=== PATIENT | male | born 1985 | race Caucasian/White ===

== ENCOUNTER 2017-06-15 13:38 | Emergency (ER) | payer SELFPAY ==
[~2017-06-15] VITALS: Ht 185.4 cm; Wt 110.0 kg
[2017-06-15 13:40] VITALS: BP 138/71; PULSE 77; RESP 15; TEMP 98.2; O2SAT 98
[2017-06-15 15:07] LABS: AUTOMATED NEUTROPHIL # 4.7 TH/MM3 (1.8-7.7); BASOPHIL % 0.6 % (0.0-2.0); EOSINOPHIL # 0.1 TH/MM3 (0-0.4); EOSINOPHIL % 1.3 % (0.0-4.0); HEMATOCRIT 46.5 % (39.0-51.0); HEMO FLAGS DIFF FINAL; LYMPH % 17.8 % (9.0-44.0); LYMPHOCYTE # 1.2 TH/MM3 (1.0-4.8); MEAN CELL VOLUME 99.6 FL (80.0-100.0); MEAN CORPUSCULAR HEMOGLOBIN 34.3 PG (27.0-34.0); MEAN CORPUSCULAR HGB CONC 34.4 % (32.0-36.0); MONO % 10.1 % (0.0-8.0); NEUT % 70.2 % (16.0-70.0); PLATELET COUNT 196 TH/MM3 (150-450); RED BLOOD COUNT 4.68 MIL/MM3 (4.50-5.90); RED CELL DISTRIBUTION WIDTH 12.6 % (11.6-17.2); WHITE BLOOD COUNT 6.7 TH/MM3 (4.0-11.0)
--- NOTE | 2017-06-15 15:33 | RADRPT ---
EXAM DATE/TIME: 06/15/2017 15:14 [place] COMPARISON: No previous studies available for comparison. INDICATIONS : Intermittent body aches and chest pain. MEDICAL HISTORY : None. SURGICAL HISTORY : None. ENCOUNTER: Initial ACUITY: 1 month PAIN SCORE: 8/10 LOCATION: Bilateral chest FINDINGS: PA and lateral views of the chest demonstrate a normal-sized cardiac silhouette. There is no effusion , consolidation, or pneumothorax. The bones and soft tissues demonstrate no acute abnormality. CONCLUSION: Normal chest x-ray. Zay Oliveros MD on June 15, 2017 at 15:31 Board Certified Radiologist. This report was verified electronically.
[2017-06-15 15:47] LABS: ANION GAP 5 MEQ/L (5-15); BICARBONATE 28.6 MEQ/L (21.0-32.0); BLOOD UREA NITROGEN 13 MG/DL (7-18); CHLORIDE 104 MEQ/L (98-107); GLOMERULAR FILTRATION RATE 91 ML/MIN (>89); SODIUM (NA) 138 MEQ/L (136-145)
[2017-06-15 15:48] VITALS: O2SAT 100
[2017-06-15 15:49] LABS: CREATINE KINASE 144 U/L (39-308)
[2017-06-15] MEDS ORDERED: ONDANSETRON HCL 4 MG/2 ML VIAL IV PUSH ONE (16:00)
[2017-06-15] MEDS ORDERED: SODIUM CHLOR 0.9% 1000 ML INJ 1,000 ML IV ONE (16:00)
[2017-06-15 16:04] LABS: CKMB 1.6 NG/ML (0.5-3.6)
--- NOTE | 2017-06-15 16:06 | PD ---
HPI Chief Complaint: Cardiac Complaint Time Seen by Provider: 16:00 Travel History International Travel<30 days: No Contact w/Intl Traveler<30days: No Traveled to known affect area: No History of Present Illness HPI 31-year-old male presents to the emergency department for evaluation of "I don' t feel good". Patient reports fatigue for several months, intermittent headaches for several months, intermittent left-sided chest pain, bilateral shoulder pain. Patient states that he ate a large Han this morning and his symptoms started shortly after. He states he is also nauseated. He denies any fevers or chills. No shortness of breath. No abdominal pain. He states he had diarrhea yesterday, one episode today. Patient denies any recent surgery or travel. No history of DVT or PE. He denies any cardiac history. He has no significant family history of cardiac disease. He has no chronic medical problems and takes no prescribed medications. Patient denies IVDU. PFSH Past Medical History Anxiety: Yes Past Surgical History Surgical History: No Previous Surgery Social History Alcohol Use: Yes Tobacco Use: No Substance Use: No Allergies-Medications (Allergen,Severity, Reaction): Coded Allergies: No Known Allergies (Unverified , 06/15/17) Review of Systems Except as stated in HPI: all other systems reviewed are Neg Physical Exam Narrative GENERAL: Well-nourished, well-developed male patient, afebrile. SKIN: Focused skin assessment warm/dry. HEAD: Normocephalic. Atraumatic. EYES: No scleral icterus. No injection or drainage. NECK: Supple, trachea midline. No JVD or lymphadenopathy. CARDIOVASCULAR: Regular rate and rhythm without murmurs, gallops, or rubs. Bilateral radial and pedal pulses are clear. RESPIRATORY: Breath sounds equal bilaterally. No accessory muscle use. Lungs sounds are clear to auscultation GASTROINTESTINAL: Abdomen soft, non-tender, nondistended. No abdominal pain to palpation. MUSCULOSKELETAL: No cyanosis, or edema. BACK: Nontender without obvious deformity. No CVA tenderness. Data Data Last Documented VS Vital Signs Date Time Temp Pulse Resp B/P Pulse Ox O2 Delivery O2 Flow Rate FiO2 06/15/17 15:48 100 06/15/17 15:48 Nasal Cannula 2 06/15/17 13:40 98.2 77 15 138/71 Orders Electrocardiogram (06/15/17 14:35) Complete Blood Count With Diff (06/15/17 14:35) Basic Metabolic Panel (Bmp) (06/15/17 14:35) Ckmb (Isoenzyme) Profile (06/15/17 14:35) Troponin I (06/15/17 14:35) Iv Access Insert/Monitor (06/15/17 14:35) Ecg Monitoring (06/15/17 14:35) Oxygen Administration (06/15/17 14:35) Oximetry (06/15/17 14:35) Chest, Pa & Lat (06/15/17 14:35) CKMB (06/15/17 14:45) CKMB% (06/15/17 14:45) Sodium Chlor 0.9% 1000 Ml Inj (Ns 1000 M (06/15/17 16:00) Ondansetron Inj (Zofran Inj) (06/15/17 16:00) Labs Laboratory Tests Test 06/15/17 14:45 White Blood Count 6.7 TH/MM3 Red Blood Count 4.68 MIL/MM3 Hemoglobin 16.0 GM/DL Hematocrit 46.5 % Mean Corpuscular Volume 99.6 FL Mean Corpuscular Hemoglobin 34.3 PG Mean Corpuscular Hemoglobin 34.4 % Concent Red Cell Distribution Width 12.6 % Platelet Count 196 TH/MM3 Mean Platelet Volume 8.2 FL Neutrophils (%) (Auto) 70.2 % Lymphocytes (%) (Auto) 17.8 % Monocytes (%) (Auto) 10.1 % Eosinophils (%) (Auto) 1.3 % Basophils (%) (Auto) 0.6 % Neutrophils # (Auto) 4.7 TH/MM3 Lymphocytes # (Auto) 1.2 TH/MM3 Monocytes # (Auto) 0.7 TH/MM3 Eosinophils # (Auto) 0.1 TH/MM3 Basophils # (Auto) 0.0 TH/MM3 CBC Comment DIFF FINAL Differential Comment Sodium Level 138 MEQ/L Potassium Level 4.0 MEQ/L Chloride Level 104 MEQ/L Carbon Dioxide Level 28.6 MEQ/L Anion Gap 5 MEQ/L Blood Urea Nitrogen 13 MG/DL Creatinine 0.96 MG/DL Estimat Glomerular Filtration 91 ML/MIN Rate Random Glucose 85 MG/DL Calcium Level 9.2 MG/DL Total Creatine Kinase 144 U/L Creatine Kinase MB 1.6 NG/ML Troponin I LESS THAN 0.02 NG/ML MDM Medical Decision Making Medical Screen Exam Complete: Yes Emergency Medical Condition: Yes Medical Record Reviewed: Yes Interpretation(s) Last Impressions Chest X-Ray 06/15/17 1435 Signed Impressions: Service Date/Time: Sunday, June 15, 2017 15:14 - CONCLUSION: Normal chest x-ray. Zay Oliveros MD Differential Diagnosis Electrolyte abnormality versus dehydration versus ACS Narrative Course 31 -year-old male presents to the emergency department for "I don't feel good". He reports bilateral shoulder pain, intermittent left-sided chest pain, none at this time. He also states he is nauseated and has intermittent headaches and fatigue for several months. Patient does appear well on exam. EKG shows sinus rhythm, heart rate 62, no acute ST changes. Patient also reports history of low back pain. However, he has not had pain at this time. He is requesting imaging, but there is no emergent indication for imaging at this time. CBC, BMP, CK, troponin are ordered and pending. Chest x-ray is ordered and pending. Patient is given normal saline 1 L IV bolus, Zofran 4 mg IV. Chest x-ray shows no acute disease. CBC shows no acute abnormality. BMP is unremarkable. CK is 144. Troponin is less than 0.02. Patient is PERC negative. Patient states he believes he is not sleeping enough and not drinking enough water. 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 I discussed the case with attending physician, Dr. Nathan, who agrees patient is stable for outpatient follow-up with his primary care physician. Patient verbalizes agreement and understanding Diagnosis Primary Impression: Atypical chest pain Referrals: Primary Care Physician call for appointment Patient Instructions: Chest Pain (ED), General Instructions Additional Instructions: Follow-up with your primary care physician. Return to the emergency department for any acute worsening of symptoms. Med/Other Pt SpecificInfo: No Change to Meds Disposition: 01 DISCHARGE HOME Condition: Stable Jeannie Duong Jun 15, 2017 16:06
--- NOTE | 2017-06-16 12:27 | EKG ---
Date Performed: 06/15/2017 Time Performed: 14:40:18 PTAGE: 31 years EKG: Sinus rhythm NORMAL ECG NO PREVIOUS TRACING DOCTOR: Cal Diaz Interpretating Date/Time 06/16/2017 12:20:54
== END 2017-06-15 17:11 | disposition home or self-care (01) ==
LOC: NEPC 13:38
DX: R07.89 Other chest pain (principal)
CPT/HCPCS: 71020; 80048; 82550; 82552; 84484; 85025; 93005; 96374; 99285; J2405; J7030